=== PATIENT | male | born 1985 | race Caucasian/White ===

== ENCOUNTER 2022-06-15 07:55 | Emergency (ER) | payer SELFPAY ==
[~2022-06-15] VITALS: Ht 172.7 cm; Wt 78.8 kg
[2022-06-15] MEDS ORDERED: ONDANSETRON ODT8 MG PO (09:15)
[2022-06-15] MEDS ORDERED: PROCHLORPERAZIN10 MG PO (09:15)
== END 2022-06-15 10:36 | disposition home or self-care (01) ==
LOC: ED 07:55
DX: K29.00 Acute gastritis without bleeding (principal); R51.9 Headache, unspecified; Z88.0 Allergy status to penicillin
CPT/HCPCS: 36415; 80048; 85025; 96374; 96375; 99284-25; J1200; J1790; J1885; J7030